=== PATIENT | male | born 1960 | race Two or more races ===

== ENCOUNTER 2018-01-03 20:40 | Emergency (ER) | payer OTHER ==
[~2018-01-03] VITALS: Ht 175.3 cm; Wt 77.1 kg
[~2018-01-03 20:40] MED LIST: BACTRIM DS TABL1 TAB PO; LASIX20 MG PO
[2018-01-03] MEDS ORDERED: LASIX20 MG (20:48)
[2018-01-03] MEDS ORDERED: CLOPIDOGREL300 MG (20:48)
[2018-01-03] MEDS ORDERED: ASPIR 8181 MG (20:48)
[2018-01-03] MEDS ORDERED: ATORVASTATIN CA20 MG (20:48)
[2018-01-03] MEDS ORDERED: GABAPENTIN300 MG (20:48)
== END 2018-01-03 23:21 | disposition home or self-care (01) ==
LOC: ER 20:40 → EMR PED 20:52 → ER 23:21
DX: S00.412A Abrasion of left ear, initial encounter (principal); W45.8XXA Other foreign body or object entering through skin, initial encounter; Y93.89 Activity, other specified; Y92.89 Other specified places as the place of occurrence of the external cause; Y99.8 Other external cause status

== ENCOUNTER 2021-05-02 14:39 | Inpatient (IN) | payer OTHER ==
[~2021-05-02] VITALS: Ht 167.6 cm; Wt 70.3 kg
[~2021-05-02 14:39] MED LIST changes: +ASPIR 8181 MG; +ATORVASTATIN CA20 MG; +CLOPIDOGREL300 MG; +GABAPENTIN300 MG; +LASIX20 MG
[2021-05-02] MEDS ORDERED: TOPROL XL25 M1 PO (14:54)
== END 2021-05-21 12:25 | disposition home or self-care (01) | DRG 617 ==
LOC: ER 14:39 → MEDI 22:54
PROVIDERS: Surgery; ADMIT Internal Medicine; ATTEND Internal Medicine
PROC: BQ3FZZZ Magnetic Resonance Imaging (MRI) of Left Lower Leg (ICD-10-PCS; 2021-05-03)
PROC: 02HV33Z Insertion of Infusion Device into Superior Vena Cava, Percutaneous Approach (ICD-10-PCS; 2021-05-03)
PROC: 4A12X4Z Monitoring of Cardiac Electrical Activity, External Approach (ICD-10-PCS; 2021-05-04)
PROC: 0Y6U0Z0 Detachment at Left 3rd Toe, Complete, Open Approach (ICD-10-PCS; 2021-05-15)
PROC: 0Y6W0Z0 Detachment at Left 4th Toe, Complete, Open Approach (ICD-10-PCS; 2021-05-15)
PROC: 0Y6Y0Z0 Detachment at Left 5th Toe, Complete, Open Approach (ICD-10-PCS; 2021-05-15)
PROC: B24BZZZ Ultrasonography of Heart with Aorta (ICD-10-PCS; 2021-05-15)
PROC: 0Y6S0Z0 Detachment at Left 2nd Toe, Complete, Open Approach (ICD-10-PCS; principal; 2021-05-15 07:15)
DX: E11.69 Type 2 diabetes mellitus with other specified complication (principal); M86.172 Other acute osteomyelitis, left ankle and foot; E11.52 Type 2 diabetes mellitus with diabetic peripheral angiopathy with gangrene; I70.262 Atherosclerosis of native arteries of extremities with gangrene, left leg; E11.621 Type 2 diabetes mellitus with foot ulcer; B95.7 Other staphylococcus as the cause of diseases classified elsewhere; B96.89 Other specified bacterial agents as the cause of diseases classified elsewhere; Z79.4 Long term (current) use of insulin; Z95.1 Presence of aortocoronary bypass graft; I10 Essential (primary) hypertension; Z20.822 Contact with and (suspected) exposure to COVID-19